=== PATIENT | female | born 1945 | race Caucasian/White ===

== ENCOUNTER 2017-06-04 15:54 | Inpatient (IN) | payer MEDICARE ==
--- NOTE | 2017-06-04 17:33 | RADIOLOGY REPORT (SQ) ---
EXAM DESCRIPTION: CHEST SINGLE VIEW COMPLETED DATE/TIME: 06/04/2017 5:16 pm REASON FOR STUDY: cough COMPARISON: None. EXAM PARAMETERS: NUMBER OF VIEWS: One view. TECHNIQUE: Single frontal radiographic view of the chest acquired. RADIATION DOSE: NA LIMITATIONS: None. FINDINGS: LUNGS AND PLEURA: There is a right pleural effusion and considerable opacification in the right lower hemithorax. MEDIASTINUM AND HILAR STRUCTURES: No masses. Contour normal. HEART AND VASCULAR STRUCTURES: Heart normal in size. Normal vasculature. BONES: No acute findings. HARDWARE: None in the chest. OTHER: No other significant finding. IMPRESSION: Right pleural effusion. Right lower lobe pneumonia versus atelectasis. TECHNICAL DOCUMENTATION: JOB ID: [id number] [email or web address]- All Rights Reserved
[2017-06-04] MEDS ORDERED: AZITHROMYCIN INJ 500 MG VIAL IV ONE (17:43)
[2017-06-04] MEDS ORDERED: CEFTRIAXONE 1 GM/D5W RTU 1 GM/50 ML RTUPB IV ONE (17:43)
[2017-06-04] MEDS ORDERED: NORMAL SALINE 500 ML IV ONE (17:45)
[2017-06-04 17:48] LABS: ABSOLUTE LYMPHOCYTES (AUTO) 0.8 10^3/uL (0.5-4.7); ABSOLUTE MONOCYTES (AUTO) 1.2 10^3/uL (0.1-1.4); ABSOLUTE NEUT (AUTO) 10.4 10^3/uL (1.7-8.2); BASOPHILS % (AUTO) 0.3 % (0-2); HEMATOCRIT 30.2 % (36.0-47.0); HEMOGLOBIN 9.9 g/dL (12.0-15.5); HGB HCT DIFFERENCE -0.5; LYMPHOCYTES % (AUTO) 6.8 % (13-45); MEAN CORPUSCULAR HEMOGLOBIN 28.4 pg (27.0-33.4); MEAN CORPUSCULAR HGB CONC 32.6 g/dL (32.0-36.0); MEAN CORPUSCULAR VOLUME 87 fl (80-97); MONOCYTES % (AUTO) 9.4 % (3-13); RED BLOOD COUNT 3.48 10^6/uL (3.72-5.28); RED CELL DISTRIBUTION WIDTH 17.4 % (11.5-14.0); SEGMENTED NEUTROPHILS % (AUTO) 83.5 % (42-78); WHITE BLOOD COUNT 12.5 10^3/uL (4.0-10.5)
[2017-06-04 17:52] LABS: ALANINE AMINOTRANSFERASE 21 U/L (9-52); ALBUMIN 2.9 g/dL (3.5-5.0); ALKALINE PHOSPHATASE 99 U/L (38-126); ANION GAP 11 (5-19); ASPARTATE AMINO TRANSFERASE 30 U/L (14-36); BILIRUBIN,DIRECT 0.5 mg/dL (0.0-0.4); BILIRUBIN,TOTAL 0.6 mg/dL (0.2-1.3); BLOOD UREA NITROGEN 17 mg/dL (7-20); CALCIUM 8.8 mg/dL (8.4-10.2); CARBON DIOXIDE 31 mmol/L (22-30); CHLORIDE 96 mmol/L (98-107); CREATININE RESULT 0.48 mg/dL (0.52-1.25); GLUCOSE 183 mg/dL (75-110); POTASSIUM 4.3 mmol/L (3.6-5.0); TOTAL PROTEIN 6.7 g/dL (6.3-8.2)
[2017-06-04 17:53] LABS: CREATINE KINASE < 20 U/L (30-135)
[2017-06-04 18:05] LABS: TROPONIN I < 0.012 ng/mL
--- NOTE | 2017-06-04 18:57 | ER Document Report ---
ED Respiratory Problem - General Chief Complaint: Cough Stated Complaint: NO APPETITE Time Seen by Provider: 06/04/17 17:39 Notes: She is a 71-year-old female who presents with increasing productive cough and decreased appetite over the past few days. She is also having mild shortness of breath. She does not wear oxygen at home. She denies chest pain, recent travel, fevers, nausea, vomiting, back pain, leg swelling, hemoptysis or sick contacts. TRAVEL OUTSIDE OF THE [place] IN LAST 30 DAYS: No - Related Data Allergies/Adverse Reactions: carbamazepine [From Tegretol] Allergy (Verified 06/04/17 15:56) morphine [Morphine] Allergy (Verified 06/04/17 15:56) Home Medications: Current Home Medications Atorvastatin Calcium [Lipitor 10 mg Tablet] 10 mg PO QHS 06/04/17 [History] Citalopram Hydrobromide [Citalopram HBr] 15 mg PO DAILY 06/04/17 [History] Metformin HCl [Metformin HCl ER] 500 mg PO DAILY 06/04/17 [History] Timolol Maleate [Timoptic 0.5% Oph Soln 5 ml] 1 drop BTH_EYE Q12 06/04/17 [ History] Past Medical History - General Information source: Patient - Social History Smoking Status: Former Smoker Chew tobacco use (# tins/day): No Frequency of alcohol use: None Drug Abuse: None Family History: Reviewed & Not Pertinent Patient has suicidal ideation: No Patient has homicidal ideation: No Endocrine Medical History: Reports: Hx Diabetes Mellitus Type 2 Renal/ Medical History: Denies: Hx Peritoneal Dialysis Past Surgical History: Reports: Hx Section, Hx Neurologic Surgery - facial nerve - Immunizations Hx Diphtheria, Pertussis, Tetanus Vaccination: Yes Review of Systems - Review of Systems Notes: REVIEW OF SYSTEMS: CONSTITUTIONAL: -fevers, -chills EENT: -eye pain, -difficulty swallowing, -nasal congestion CARDIOVASCULAR:-chest pain, -syncope. RESPIRATORY: +cough, +SOB GASTROINTESTINAL: -abdominal pain, -nausea, -vomiting, -diarrhea GENITOURINARY: -dysuria, -hematuria MUSCULOSKELETAL: -back pain, -neck pain SKIN: -rash or skin lesions. HEMATOLOGIC: -easy bruising or bleeding. LYMPHATIC: -swollen, enlarged glands. NEUROLOGICAL: -altered mental status or loss of consciousness, -headache, - neurologic symptoms PSYCHIATRIC: -anxiety, -depression. ALL OTHER SYSTEMS REVIEWED AND NEGATIVE. Physical Exam - Vital signs Vitals: Temp Pulse Resp BP Pulse Ox 98 F 70 28 H 104/52 L 91 L 06/04/17 15:59 06/04/17 15:59 06/04/17 15:59 06/04/17 15:59 06/04/17 15:59 - Notes Notes: PHYSICAL EXAMINATION: GENERAL: Mild respiratory distress. HEAD: Atraumatic, normocephalic. EYES: Pupils equal round and reactive to light, extraocular movements intact, sclera anicteric, conjunctiva are normal. ENT: nares patent, oropharynx clear without exudates. Moist mucous membranes. NECK: Normal range of motion, supple without lymphadenopathy LUNGS: Tachypnea. Crackles in RLL. HEART: Regular rate and rhythm without murmurs ABDOMEN: Soft, nontender, normoactive bowel sounds. No guarding, no rebound. No masses appreciated. EXTREMITIES: Normal range of motion, no pitting or edema. No cyanosis. NEUROLOGICAL: Cranial nerves grossly intact. Normal speech, normal gait. Normal sensory and motor exams. PSYCH: Normal mood, normal affect. SKIN: Warm, Dry, normal turgor, no rashes or lesions noted. Course - Re-evaluation Re-evalutation: Patient with right lower lobe pleural effusion and pneumonia. With the leukocytosis and productive cough, will begin antibiotics for CAP. She remains tachypneic at rest, which worsens during exertion. Rest of blood work is all unremarkable. She recently moved to [place] from [place] to live with her daughter and her primary care physician is Hudson Dukes. 06/04/17 21:[address] Zavala (Hospitalist) and she will admit patient as Inpatient to [facility] for further treatment and monitoring of her extensive pneumonia. CTA shows a possible cavitary lesion, but patient has no risk factors for tuberculosis and no recent travel or group home time. - Vital Signs Vital signs: Temp Pulse Resp BP Pulse Ox 97.8 F 64 36 H 129/55 H 93 06/04/17 20:07 06/04/17 20:00 06/04/17 21:13 06/04/17 21:13 06/04/17 21:13 - Laboratory Result Diagrams: 06/04/17 17:13 06/04/17 17:13 Laboratory results interpreted by me: 06/04/17 06/04/17 06/04/17 17:13 17:13 17:13 WBC 12.5 H RBC 3.48 L Hgb 9.9 L Hct 30.2 L RDW 17.4 H Plt Count 614 H Seg Neutrophils % 83.5 H Lymphocytes % 6.8 L Absolute Neutrophils 10.4 H VBG pH Chloride 96 L Carbon Dioxide 31 H Creatinine 0.48 L Glucose 183 H Direct Bilirubin 0.5 H Creatine Kinase < 20 L NT-Pro-B Natriuret Pep 2930 H Albumin 2.9 L 06/04/17 17:13 WBC RBC Hgb Hct RDW Plt Count Seg Neutrophils % Lymphocytes % Absolute Neutrophils VBG pH 7.47 H Chloride Carbon Dioxide Creatinine Glucose Direct Bilirubin Creatine Kinase NT-Pro-B Natriuret Pep Albumin - Diagnostic Test Radiology reviewed: Image reviewed, Reports reviewed Radiology results interpreted by me: CXR: Right pleural effusion. Right lower lobe pneumonia versus atelectasis. CTA Chest: Extensive pneumonia on the right with large right pleural effusion. Possible cavitary component. Peripheral opacity in the left lung. No pulmonary emboli. - EKG Interpretation by Me EKG shows normal: Sinus rhythm, [place], Intervals, QRS Complexes, ST-T Waves Rate: Normal When compared to previous EKG there are: No significant change Critical Care Note - Critical Care Note Total time excluding time spent on procedures (mins): 35 Discharge - Discharge Clinical Impression: Pleural effusion, right Pneumonia Qualifiers: Pneumonia type: due to unspecified organism Laterality: right Lung location: lower lobe of lung Qualified Code(s): J18.1 - Lobar pneumonia, unspecified organism Condition: Stable Disposition: ADMITTED INPATIENT Admitting Provider: Hospitalist [facility] Admitted: [facility]
[2017-06-04 19:01] LABS: VENOUS BLOOD BASE EXCESS 5.4 mmol/L; VENOUS BLOOD HCO3 29.5 mmol/L (20-32); VENOUS BLOOD PCO2 41.6 mmHg (35-63); VENOUS BLOOD PH 7.47 (7.30-7.42)
[2017-06-04] MEDS ORDERED: ONDANSETRON HCL INJ/PF 4 MG/2 ML SDV IV ONE (20:14)
[2017-06-04] MEDS ORDERED: FUROSEMIDE INJ/PF 20 MG/2 ML SDV IV ONE (21:15)
--- NOTE | 2017-06-04 21:16 | RADIOLOGY REPORT (SQ) ---
EXAM DESCRIPTION: CTA CHEST COMPLETED DATE/TIME: 06/04/2017 9:04 pm REASON FOR STUDY: SOB COMPARISON: None. TECHNIQUE: CT scan of the chest performed using helical scanning technique with dynamic intravenous contrast injection. Images reviewed with lung, soft tissue and bone windows. Reconstructed coronal and sagittal MPR images reviewed. Additional 3 dimensional post-processing performed to develop Maximal Intensity Projection images (GA P). All images stored on PACS. All CT scanners at this facility use dose modulation, iterative reconstruction, and/or weight based d osing when appropriate to reduce radiation dose to as low as reasonably achievable (ALARA). [facility]: Dose Right [facility]: CareDose [facility]: Dose Right [facility]: Teradose 4D [facility]: Selvz CONTRAST TYPE AND DOSE: contrast/concentration: Isovue 370.00 mg/ml; Total Contrast Delivered: 60.0 ml; Total Saline Delivered: 40.1 ml Contrast bolus adequate for pulmonary arteries and aorta. RENAL FUNCTION: GFR > 60. RADIATION DOSE: Up-to-date CT equipment and radiation dose reduction techniques were employed. CTDIv ol: 13.2 - 14.3 mGy. DLP: 496 mGy-cm. . LIMITATIONS: None. FINDINGS: LUNGS AND PLEURA: Large right pleural effusion with extensive opacity and volume loss in t he right lung. Possible early cavitation the right upper lobe. Peripheral pleural-based opacity in the left lung. Small left effusion. AORTA AND GREAT VESSELS: No aneurysm. Contrast bolus not optimized for the aorta. HEART: No pericardial effusion. No significant coronary artery calcifications. PULMONARY ARTERIES: No emboli visualized in the main pulmonary arteries or the segmental branches. HILAR AND MEDIASTINAL STRUCTURES: No identified masses or abnormal nodes. HARDWARE: None in the chest. UPPER ABDOMEN: No significant findings. Limited exam. THYROID AND OTHER SOFT TISSUES: No masses. No adenopathy. BONES: No acute or significant finding. 3D MIPS: Confirm above findings. OTHER: No other significant finding. IMPRESSION: Extensive pneumonia on the right with large right pleural effusion. Possible cavitary c omponent. Peripheral opacity in the left lung. No pulmonary emboli. COMMENT: Quality ID # [id number]: Final reports with documentation of one or more dose reduction techniques (e.g., Automated exposure control, adjustment of the mA and/or kV according to patient size, use of iterative reconstruction technique) TECHNICAL DOCUMENTATION: JOB ID: [id number] [employer]- All Rights Reserved
[2017-06-04] MEDS ORDERED: LEVALBUTEROL HCL NEB 1.25 MG/3 ML AMPUL NEB PRN (21:38)
[2017-06-04] MEDS ORDERED: ACETAMINOPHEN 325 MG TABLET PO PRN (21:38)
[2017-06-04] MEDS ORDERED: GUAIFENESIN SYRP 200 MG/10 ML UDC PO PRN (21:38)
[2017-06-04] MEDS ORDERED: DEXTROSE 50%-WATER 25 GM/50 ML DISP.SYRIN IV PRN ×2 (21:44)
[2017-06-04] MEDS ORDERED: DEXTROSE 40% GEL 15 GM TUBE PO PRN ×2 (21:44)
[2017-06-04] MEDS ORDERED: GLUCAGON,HUMAN RECOMB 1 MG INJ IM PRN (21:44)
[2017-06-04] MEDS ORDERED: GENTAMICIN SULFATE 0 MG in DEXTROSE 5%-WATER 100 ML IV NR (21:45)
[2017-06-04] MEDS ORDERED: NORMAL SALINE 1000 ML 1,000 ML IV PRN ×2 (21:49→23:26)
[2017-06-04] MEDS ORDERED: OXYCODONE HCL IR 5 MG TABLET PO PRN (21:50)
[2017-06-04] MEDS ORDERED: GENTAMICIN SULFATE INJ 80 MG/2 ML VIAL IV PRN (22:29)
[2017-06-04] MEDS ORDERED: GENTAMICIN SULFATE 100 MG in DEXTROSE 5%-WATER 100.0 ML IV ONE (22:30)
[2017-06-04 22:54] LABS: CREATINE KINASE MB < 0.22 ng/mL (<4.55); TROPONIN I < 0.012 ng/mL
[2017-06-04] MEDS ORDERED: LEVOFLOXACIN 750 MG/D5W RTU 750 MG/150 ML RTUPB IV ONE (23:00)
[2017-06-04] MEDS ORDERED: NORMAL SALINE 1000 ML 500 ML IV ONE (23:20)
[2017-06-04] MEDS: CEFEPIME 2 GM/D5W RTU 2 GM/50 ML RTUPB IV SCH (23:30)
--- NOTE | 2017-06-04 23:47 | PDOC H&P ---
History of Present Illness Admission Date/PCP: 06/04/17 20:56 MARINE WAGONER MD History of Present Illness: JESSICA OLIVER is a 71 year old female with past medical history of trigeminal neuralgia chronic, chronic opiate dependence, diabetes mellitus type 2, COPD, and glaucoma who presents to the emergency department with a cough of several weeks duration. Patient reports that she was diagnosed with pneumonia approximately 1 month ago and received an antibiotic which she cannot recall the name of and completed. She did request states that she did not feel any better after having this antibiotic. She reports that her shortness of breath has gotten worse. She does admit to chest pain on both her left and right side. She reports that this is a sharp stabbing pain that is worse with deep inspiration. She also reports orthopnea, dyspnea on exertion, and bilateral lower extremity edema. She reports that she is currently being worked up for congestive heart failure and has been placed on a water pill. She takes states that she takes this every other day. She reports that she has not eaten for the last 2 days. She does report she has had some loose stool over the last several days. Patient is referred to the hospitalist service for sepsis, pneumonia. Please note that patient's medications are listed but do not include her oxycodone 15 mg p.o. every 6H prn Past Medical History Pulmonary Medical History: Reports: Chronic Obstructive Pulmonary Disease (COPD) , Pneumonia EENT Medical History: Reports: Other - Glaucoma Neurological Medical History: Reports: Other - Trigeminal neuralgia Endocrine Medical History: Reports: Diabetes Mellitus Type 2 Psychiatric Medical History: Denies: Depression Past Surgical History Past Surgical History: Reports: Section, Other - Trigeminal neuralgia surgery Social History Smoking Status: Former Smoker Cigarettes Packs Per Day: 0.5 Number of Years Smokin Last Time Smoked: April 21, 2017 Hx Recreational Drug Use: No Hx Prescription Drug Abuse: No - Advance Directive Resuscitation Status: Full Code Surrogate healthcare decision maker:: Mariama Fabianbimal, daughter Family History Family History: COPD, CVA Parental Family History Reviewed: Yes Children Family History Reviewed: Yes Sibling(s) Family History Reviewed.: Yes Medication/Allergy Home Medications: Atorvastatin Calcium [Lipitor 10 mg Tablet] 10 mg PO QHS 06/04/17 Citalopram Hydrobromide [Citalopram HBr] 15 mg PO DAILY 06/04/17 Metformin HCl [Metformin HCl ER] 500 mg PO DAILY 06/04/17 Timolol Maleate [Timoptic 0.5% Oph Soln 5 ml] 1 drop BTH_EYE Q12 06/04/17 Allergies/Adverse Reactions: carbamazepine [From Tegretol] Allergy (Verified 06/04/17 15:56) morphine [Morphine] Allergy (Verified 06/04/17 15:56) Review of Systems Constitutional: PRESENT: weakness. ABSENT: chills, fever(s), headache(s), weight gain, weight loss Eyes: ABSENT: visual disturbances Ears: ABSENT: hearing changes Nose, Mouth, and Throat: PRESENT: headache(s) - Chronic due to trigeminal neuralgia Cardiovascular: PRESENT: chest pain, dyspnea on exertion, edema, orthropnea. ABSENT: palpitations Respiratory: PRESENT: cough, dyspnea, sputum. ABSENT: hemoptysis Gastrointestinal: PRESENT: constipation, diarrhea, nausea. ABSENT: abdominal pain, hematemesis, hematochezia, melena, vomiting Genitourinary: ABSENT: difficulty urinating, dysuria, hematuria Musculoskeletal: ABSENT: joint swelling Integumentary: ABSENT: rash, wounds Neurological: ABSENT: abnormal gait, abnormal speech, confusion, dizziness, focal weakness, syncope Psychiatric: ABSENT: anxiety, depression, homidical ideation, suicidal ideation Endocrine: ABSENT: cold intolerance, heat intolerance, polydipsia, polyuria Hematologic/Lymphatic: ABSENT: easy bleeding, easy bruising Physical Exam Vital Signs: Temp Pulse Resp BP Pulse Ox 97.6 F 60 20 92/49 L 94 06/04/17 22:33 06/04/17 22:33 06/04/17 22:33 06/04/17 22:33 06/04/17 22:33 Intake & Output 06/03/17 06/04/17 06/05/17 06:59 06:59 06:59 Weight 47 kg General appearance: PRESENT: mild distress - Acutely ill-appearing, well- developed, well-nourished Head exam: PRESENT: atraumatic, normocephalic Eye exam: PRESENT: conjunctiva pink, EOMI, PERRLA. ABSENT: conjunctival injection, scleral icterus Ear exam: PRESENT: normal external ear exam Mouth exam: PRESENT: dry mucosa, tongue midline Neck exam: ABSENT: JVD, lymphadenopathy, thyromegaly, tracheal deviation Respiratory exam: PRESENT: crackles, decreased breath sounds - Right lower lobe , egophony, prolonged expiratory phas, rhonchi - Bilateral, symmetrical, tachypnea, other - General poor air excursion. ABSENT: accessory muscle use, rales, unlabored, wheezes Cardiovascular exam: PRESENT: RRR, +S1, +S2. ABSENT: diastolic murmur, rubs, systolic murmur Pulses: PRESENT: normal dorsalis pedis pul Vascular exam: PRESENT: normal capillary refill GI/Abdominal exam: PRESENT: hypoactive bowel sounds, normal bowel sounds, soft. ABSENT: distended, guarding, mass, Clayton's sign, organolmegaly, rebound, rigid, tenderness Rectal exam: PRESENT: deferred Extremities exam: PRESENT: clubbing, full ROM, +2 edema - To mid briggs. ABSENT: calf tenderness Neurological exam: PRESENT: alert, awake, oriented to person, oriented to place , oriented to time, oriented to situation, CN II-XII grossly intact. ABSENT: motor sensory deficit Psychiatric exam: PRESENT: anxious, appropriate affect. ABSENT: homicidal ideation, suicidal ideation Skin exam: PRESENT: dry, intact, warm. ABSENT: cyanosis, rash Results Laboratory Results: 06/04/17 21:45 TSH 0.81 06/04/17 06/04/17 21:45 21:45 Creatine Kinase < 20 L CK-MB (CK-2) < 0.22 Troponin I < 0.012 06/04/17 06/04/17 06/04/17 17:13 17:13 17:13 WBC 12.5 H Hgb 9.9 L Plt Count 614 H VBG pH Sodium 138.0 Potassium 4.3 Chloride 96 L Carbon Dioxide 31 H Anion Gap 11 BUN 17 Creatinine 0.48 L Glucose 183 H Lactic Acid AST 30 ALT 21 Alkaline Phosphatase 99 Creatine Kinase < 20 L Troponin I < 0.012 NT-Pro-B Natriuret Pep 2930 H Total Protein 6.7 Albumin 2.9 L 06/04/17 06/04/17 17:13 17:13 WBC Hgb Plt Count VBG pH 7.47 H Sodium Potassium Chloride Carbon Dioxide Anion Gap BUN Creatinine Glucose Lactic Acid 1.2 AST ALT Alkaline Phosphatase Creatine Kinase Troponin I NT-Pro-B Natriuret Pep Total Protein Albumin Impressions: Chest/Abdomen CTA 06/04/17 00:00 IMPRESSION: Extensive pneumonia on the right with large right pleural effusion. Possible cavitary component. Peripheral opacity in the left lung. No pulmonary emboli. Chest X-Ray 06/04/17 16:50 IMPRESSION: Right pleural effusion. Right lower lobe pneumonia versus atelectasis. Status: Imported from PACS Assessment & Plan - Diagnosis (1) Pneumonia Qualifiers: Pneumonia type: due to unspecified organism Laterality: right Lung location: lower lobe of lung Qualified Code(s): J18.1 - Lobar pneumonia, unspecified organism Is this a current diagnosis for this admission?: Yes Plan: Patient reports that she failed outpatient therapy having an unknown antibiotic approximately 1 month ago. In light of patient's COPD and chronic opiate dependence, have concerned for possible aspiration as there is a possible cavitary lesion on her CT. Patient has not traveled to endemic parts of the of the world for tuberculosis or has been incarcerated, but will obtain a QuantiFERON gold. Place patient on cefepime, gentamicin, and Levaquin. Will also place patient on Solu-Medrol. Consider vancomycin if MRSA becomes suspect. (2) Acute hypoxemic respiratory failure Is this a current diagnosis for this admission?: Yes Plan: Oxygen therapy to maintain saturation between 90 and 94 (3) Pleural effusion, right Is this a current diagnosis for this admission?: Yes Plan: Have concerned that this is a multifactorial effusion given patient's presentation sounds quite a bit like congestive heart failure. Obtain an echo, and a thoracocentesis. There is concern for a malignant effusion as well as a empyema. This will be very revealing for this. Hold on any Lasix at this time due to patient's relative hypotension. (4) COPD exacerbation Is this a current diagnosis for this admission?: Yes Plan: Place patient on scheduled nebulized treatments as well as Solu-Medrol (5) Trigeminal neuralgia Is this a current diagnosis for this admission?: Yes Plan: Continue oxycodone if blood pressure and breathing permits. Patient reports her allergy to Tegretol is a rash and to oral morphine is a stomach problem undefined. (6) Chronic prescription opiate use Is this a current diagnosis for this admission?: Yes Plan: Continue oxycodone (7) Malnutrition Qualifiers: Malnutrition type: protein-calorie malnutrition Protein-calorie malnutrition severity: moderate Qualified Code(s): E44.0 - Moderate protein- calorie malnutrition Is this a current diagnosis for this admission?: Yes Plan: Place patient on Glucerna 3 times daily. (8) Failure of outpatient therapy Is this a current diagnosis for this admission?: Yes (9) DM type 2 (diabetes mellitus, type 2) Qualifiers: Diabetes mellitus complication status: with unspecified complications Diabetes mellitus fpc insulin use: without manager intermediate use Qualified Code( s): E11.8 - Type 2 diabetes mellitus with unspecified complications Is this a current diagnosis for this admission?: Yes Plan: Will hold patient's metformin and place on sliding scale insulin. Check A1c. (10) Anemia Qualifiers: Anemia type: unspecified type Qualified Code(s): D64.9 - Anemia, unspecified Is this a current diagnosis for this admission?: Yes Plan: We will guaiac patient's stool. Obtain anemia studies. - Time Time Spent: 50 to 70 Minutes Medications reviewed and adjusted accordingly: Yes Anticipated discharge: Home - Inpatient Certification Based on my medical assessment, after consideration of the patient's comorbidities, presenting symptoms, or acuity I expect that the services needed warrant INPATIENT care.: Yes I certify that my determination is in accordance with my understanding of Medicare's requirements for reasonable and necessary INPATIENT services [42 CFR 412.3e].: Yes Medical Necessity: Failure to Improve With Outpatient Therapy, Need For IV Fluids, Need For Continuous Telemetry Monitoring, Need for Nebulizer Therapy and Monitoring of Response, Need for IV Antibiotics Post Hospital Care: D/C Information Resource Consultant Documentation
[2017-06-04] MEDS: METHYLPREDNISOLONE INJ 40 MG/1 ML SDV IV SCH (23:48)
[2017-06-04] MEDS: ATORVASTATIN CALCIUM 10 MG TABLET PO SCH (23:49)
[2017-06-04] MEDS: SENNOSIDES/DOCUSATE 8.6-50 MG 1 EACH TABLET PO SCH (23:49)
[2017-06-04] MEDS: GUAIFENESIN 600 MG TABLET.SA PO SCH (23:50)
[2017-06-04] MEDS: TIMOLOL MALEATE 0.5% OPH SOLN 5 ML OU SCH (23:51)
[2017-06-05 00:04] LABS: PROTHROMBIN TIME 16.2 SEC (11.4-15.4)
[2017-06-05 00:05] LABS: PARTIAL THROMBOPLASTIN TIME 43.6 SEC (23.5-35.8)
[2017-06-05] MEDS ORDERED: NORMAL SALINE IV ONE ×2 (00:30→01:15)
[2017-06-05] MEDS ORDERED: GENTAMICIN SULFATE IV ONE ×2 (00:30→01:15)
[2017-06-05] MEDS: IPRATROPIUM/ALBUTEROL 0.5-2.5 MG/3 ML AMPUL NEB SCH ×4 (01:57→19:54)
[2017-06-05 04:16] LABS: HEMATOCRIT 27.7 % (36.0-47.0); HGB HCT DIFFERENCE -0.7; MEAN CORPUSCULAR HGB CONC 32.3 g/dL (32.0-36.0); MEAN CORPUSCULAR VOLUME 87 fl (80-97); RED CELL DISTRIBUTION WIDTH 17.1 % (11.5-14.0); WHITE BLOOD COUNT 9.5 10^3/uL (4.0-10.5)
[2017-06-05 04:20] LABS: ANION GAP 12 (5-19); BLOOD UREA NITROGEN 14 mg/dL (7-20); CALCIUM 8.3 mg/dL (8.4-10.2); CARBON DIOXIDE 25 mmol/L (22-30); CHLORIDE 101 mmol/L (98-107); CREATININE RESULT 0.42 mg/dL (0.52-1.25); GLUCOSE 247 mg/dL (75-110); POTASSIUM 3.9 mmol/L (3.6-5.0); SODIUM 138.2 mmol/L (137-145)
[2017-06-05 04:35] LABS: CREATINE KINASE MB < 0.22 ng/mL (<4.55); TROPONIN I < 0.012 ng/mL
[2017-06-05 04:53] LABS: BASOPHILS % (MANUAL) 0 % (0-2); EOSINOPHILS % (MANUAL) 0 % (0-6); LYMPHOCYTES % (MANUAL) 6 % (13-45); TOTAL CELLS COUNTED 100
[2017-06-05 04:54] LABS: ANISOCYTOSIS 1+; TOXIC GRANULATION SLIGHT
[2017-06-05 05:06] LABS: STAIN REACTIVITY CHECK ACCEPTABLE
[2017-06-05] MEDS: METHYLPREDNISOLONE INJ 40 MG/1 ML SDV IV SCH (05:06)
[2017-06-05 05:44] LABS: FOLATE > 20.00 ng/mL (>2.76)
[2017-06-05] MEDS: DOCUSATE SODIUM 100 MG CAPSULE PO SCH ×2 (08:44→17:01)
[2017-06-05] MEDS: GUAIFENESIN 600 MG TABLET.SA PO SCH ×2 (08:45→21:28)
[2017-06-05] MEDS: CEFEPIME 2 GM/D5W RTU 2 GM/50 ML RTUPB IV SCH ×2 (08:46→21:25)
--- NOTE | 2017-06-05 09:28 | EKG REPORT ---
SEVERITY:- ABNORMAL ECG - SINUS RHYTHM PROBABLE LEFT ATRIAL ABNORMALITY LEFT ANTERIOR FASCICULAR BLOCK LOW VOLTAGE IN FRONTAL LEADS NONSPECIFIC T ABNORMALITIES, INFERIOR LEADS BORDERLINE PROLONGED QT INTERVAL : Confirmed by: Matilda Armenta 05-Jun-2017 09:27:50
[2017-06-05] MEDS ORDERED: ENOXAPARIN SODIUM INJ 30 MG/0.3 ML DISP.SYRIN SUBCUT SCH (10:00)
[2017-06-05] MEDS: TIMOLOL MALEATE 0.5% OPH SOLN 5 ML OU SCH ×2 (10:52→21:27)
[2017-06-05] MEDS: INSULIN LISPRO 100 UNIT/ML 3 ML VIAL SUBCUT PRN ×3 (12:33→21:25)
--- NOTE | 2017-06-05 12:57 | TRANSFER SUMMARY E ---
Transfer Summary NAME: JESSICA OLIVER : 1945 AGE: 71Y ADMITTED: 06/04/2017 TRANSFERRED: 06/05/2017 RECEIVING FACILITY: [facility] CODE STATUS: DO NOT RESUSCITATE/DO NOT INTUBATE. PRIMARY CARE PROVIDER: Hudson Dukes TRANSFER DIAGNOSES: Includes: 1. Loculated effusion versus empyema of the right lung. 2. Extensive right lung pneumonia. 3. Diabetes mellitus type 2, which is well controlled. 4. Pwy-pleecs-rsuqmrayi COPD. 5. Tobacco dependency. The patient stopped smoking 04/21/2017. 6. Diabetes mellitus type 2, soy-srgoebb-laquohanx. 7. Acute hypoxic respiratory failure secondary to #1. CURRENT MEDICATIONS: Include: 1. Cefepime 2 g IV q. 12 hours. 2. Levaquin 750 mg IV q. hour of sleep. 3. Duonebs q. 6 hours p.r.n. 4. Xopenex 1.25 mg nebs q. 2 hours p.r.n. 5. Lipitor 10 mg p.o. q. hour of sleep. 6. Haldol 650 mg p.o. q. 4 hours p.r.n. 7. OxyIR 10 mg p.o. q. 6 hours p.r.n. 8. Normal saline 83.3 mL an hour. 9. Gentamicin IV 90 mg q. a.m. 10. Timoptic 0.5 drops in both eyes q. 12. 11. Colace 100 mg p.o. b.i.d. 12. Solu-Medrol 80 mg IV q. 8 hours. 13. Mucinex 600 mg p.o. q. 12 hours. DIET: Currently cardiac. Patient will be made n.p.o. for transport. ACTIVITY: Bedrest. DIAGNOSTICS: Lab values are as follows: Hematology obtained on 06/05/2017: WBCs are 9.5, hemoglobin is 9.0, hematocrit is 27.7, platelet count is 526,000. Coagulation obtained on 06/04/2017: PT is 16.2, INR is 1.22. Venous blood gases obtained on 06/04/2017: PH is 7.47, PCO2 is 41.6, bicarb is 29.5. Chemistry obtained on 05/26/2017: Sodium is 138, potassium 3.9, chloride is 101, carbon dioxide 25, BUN 14, creatinine is 0.42, glucose is 247. A1C is 6.8. Lactic acid is 1.2. Calcium is 8.3, iron is 10.1, TIBC is 172. Transferrin is pending. Ferritin is 342. BNP is 1730, B12 is 894. Folate is greater than 20. Bilirubin is 0.6. AST 30, ALT is 21, Alk phos 99, CK 20, CK-MB is 0.22. Troponin is 0.012. Serologies obtained on 06/05/2017: TB Quantiferon is pending. Microbiology: Blood cultures obtained on 06/04/2017 is pending. CTA of the chest and abdomen obtained on 06/04/2017 reveals extensive pneumonia on the right with a large right pleural effusion, possible cavitary component, peripheral opacity in the left lung, but no pulmonary emboli. EKG obtained on 06/04/2017 reveals sinus rhythm with left atrial abnormality. HISTORY OF PRESENT ILLNESS: The patient is a 71-year-old female with a past medical history of diet-controlled diabetes as well as recent trigeminal neuralgia and uqy-zfmzug-otksuniju COPD. The patient presented to the emergency department with a chief complaint of shortness of breath, cough, and sputum production. The patient stated that she was diagnosed with pneumonia outpatient about a month ago and had been receiving an antibiotic, which she felt was Levaquin, without any improvement of symptoms. The patient stated that her shortness of breath had progressed to the point that she was unable to fully complete sentences. The patient admitted to chest pain on both the right and left side of her chest, very sharp, stabbing pain with deep inspiration. The patient reported orthopnea, dyspnea on exertion, and a presence of bilateral lower extremity edema, which was new for her. However, the patient has had about 40 pound weight loss in spite of this. The patient was noted to have a white count of 12.5, a hemoglobin of 9.9, platelets of 614,000. The patient's chemistries were pretty unremarkable, and the patient did have a BNP of 2900. The patient was treated in the emergency department with nebs as well as gentamicin and Levaquin, and the patient was referred to the hospitalist for admission and management. The patient also received a dose of Lasix. HOSPITAL COURSE: The patient was admitted to [facility]. The patient was on scheduled and p.r.n. breathing treatments and the patient eventually was able to transition to a nasal cannula. The patient was currently oxygenating about 95% on 2 L and appears comfortable. The patient's tachypnea overall has improved. The patient is now able to complete sentences on examination. The patient was scheduled for a thoracentesis by Interventional Radiology who called and discussed the case with myself and felt that the patient would not benefit from procedure here and recommended a VATS procedure. Given that it appeared to be a loculated impending empyema, called and discussed the case with Dr. Bazan with Thoracic Surgery who graciously agreed to see the patient on consult, then contacted the Medicine Service, Dr. Tavares, who has graciously agreed to accept the patient in transfer, and did discuss this plan with the patient. PHYSICAL EXAMINATION: GENERAL: On examination, the patient is a frail, chronically ill-appearing 71-year-old female who is awake, alert. She is oriented to person, place, time, and situation. She is verbal, conversational, does not appear to be distressed at the moment. VITAL SIGNS: Temperature is 97.8, pulse 61, respirations 22, blood pressure 115/58, oxygen saturation 100% on 2 L nasal cannula. SKIN: Warm and dry. No rash. Not diaphoretic. HEENT: Pupils equal, round, and reactive to light and accommodation. Conjunctivae pink. No JVP. CARDIOVASCULAR SYSTEM: Heart is regular. There is no murmur or rub. CHEST: Diminished. The patient does have rhonchorous breath sounds all throughout the right lung field. ABDOMEN: Soft, nontender, nondistended. BACK: No CVA tenderness or sacral edema. EXTREMITIES: The patient does have 1+ bilateral lower extremity pitting edema, which is relatively new for the patient within the past month. PSYCHIATRIC: Appropriate affect, pleasant mood. DISCHARGE PLANNING: The patient will be received to the services of Dr. Tavares, the hospitalist at [facility] with Thoracic Surgery consultation. Time spent on this transfer including assessment, plan, physical examination, patient education, review of previous current medical records, and resource alignment is 90 minutes. DICTATING PHYSICIAN: SKYE SULLIVAN NP [id number] PHY#: [id number] ID: [id number] JOB#: [id number] ACCT: [id number] cc:SKYE SULLIVAN NP > JUAN
[2017-06-05] MEDS: DIVALPROEX SODIUM 250 MG TABLET.DR PO SCH ×2 (13:55→21:28)
[2017-06-05] MEDS: OXYCODONE HCL IR 5 MG TABLET PO PRN ×2 (13:55→18:04)
[2017-06-05] MEDS: METHYLPREDNISOLONE INJ 125 MG/2 ML SDV IV SCH ×2 (13:59→21:26)
[2017-06-05] MEDS: ATORVASTATIN CALCIUM 10 MG TABLET PO SCH (21:28)
[2017-06-05] MEDS: SENNOSIDES/DOCUSATE 8.6-50 MG 1 EACH TABLET PO SCH (21:28)
[2017-06-05] MEDS ORDERED: LEVOFLOXACIN 750 MG/D5W RTU 750 MG/150 ML RTUPB IV SCH (22:00)
[2017-06-05 23:41] VITALS: BP 100/60
[2017-06-06] MEDS ORDERED: GENTAMICIN SULFATE 90 MG in DEXTROSE 5%-WATER 100 ML IV SCH (06:00)
--- NOTE | 2017-06-06 09:12 | Physician Advisory Note ---
Physician Advisor ProgressNote .: Pursuant to the plan for [facility], I have reviewed the medical record for this patient. Physician Advisor Statement: Please consider documenting, if you agree: 1. "ACute Hypoxemic Respiratory FAilure, evidenced by O2 sat only 95% on 2L O2 , tachypnea, resp distress, and unable to speak in complete sentences due to SOB " 2. "underweight with protein-calorie malnutrition [state mild, mod, or severe ] with BMI 17.8, ..." [if possible, give specifics on intake, wt loss, loss of SQ fat & muscle mass, diminished hand surgical dental assistant strength, & clinical importance such as (A) nutritional assessment ordered, (B) modified diet or supplements ordered, (C) additional labs ordered, (D) prolonged wound healing time, (E) delayed infxn clearance] CK
[2017-06-07 21:07] LABS: QUANTIFERON TB ANTIGEN VALUE 0.09 IU/mL (.); QUANTIFERON TB NIL VALUE 0.06 IU/mL (.)
== END 2017-06-05 23:20 | disposition short-term general hospital (02) | DRG 189 ==
LOC: ER 15:54 → EH 20:56 → 3W 22:09
PROVIDERS: ADMIT Family Medicine; ATTEND Family Medicine
DX: J96.01 Acute respiratory failure with hypoxia (principal); J86.9 Pyothorax without fistula; J18.1 Lobar pneumonia, unspecified organism; J44.0 Chronic obstructive pulmonary disease with (acute) lower respiratory infection; J44.1 Chronic obstructive pulmonary disease with (acute) exacerbation; E44.0 Moderate protein-calorie malnutrition; J90 Pleural effusion, not elsewhere classified; Z68.1 Body mass index [BMI] 19.9 or less, adult; F11.20 Opioid dependence, uncomplicated; G50.0 Trigeminal neuralgia; E11.9 Type 2 diabetes mellitus without complications; D64.9 Anemia, unspecified; H40.9 Unspecified glaucoma; Z79.84 Long term (current) use of oral hypoglycemic drugs; Z79.899 Other long term (current) drug therapy; Z87.891 Personal history of nicotine dependence; Z88.8 Allergy status to other drugs, medicaments and biological substances
CPT/HCPCS: 36415; 71010; 71275; 80048; 80053; 82550; 82553; 82607; 82728; 82746; 82803; 82962; 83036; 83540; 83550; 83605; 83880; 84443; 84466; 84484; 85025; 85045; 85610; 85730; 86480; 87040; 93005; 93010; 94640; 94799; 96361; 96365; 96367; 96375; 99291; J0456; J0692; J0696; J1580; J1815; J1956; J2405; J2920; J2930; J3490; J7030; J7040; J7620

== ENCOUNTER → 2017-07-11 | Outpatient (CLI) | payer MEDICARE ==
[~2017-07-11] MED LIST: ALBUTEROL SULFATE 0.083% NEB 2.5 MG/3 ML AMPUL NEB ONE
--- NOTE | 2017-07-12 11:07 | Pulmonary Function Test ---
Pulmonary Function Test Date of Procedure:: 07/12/17 INDICATION:: Dyspnea Referring Provider: Dr. Reji Ruiz Carbonation Equipment Tender: Martha Muller SUPERVISOR SHUTTLE PREPARATION, DAM TENDER ASSISTANT - Report Spirometry: FVC 2.62 L 93% postbronchodilator therapy 2.71 L 96% FEV1 1.75 L 81% postbronchodilator therapy 1.78 L 82% FEV1/FVC % 67 postbronchodilator therapy 65 predicted 82 FEF 25-75% 1.06 L 53% postbronchodilator therapy 1.15 L 58% Lung Volume: Total lung capacity 4.37 L 91% Vital capacity 2.87 L 93% IC 1.19 FRC N2 3.18 103% ERV 0.82 RV 1.75 90% RV/TLC % 40 predicted 41 Diffusion Capactity: DLCO 10.8 70% DLCO/VA 3.20 88% Impression: This study demonstrates moderate obstructive ventilatory defect with insignificant response to bronchodilator therapy. This does not preclude a clinical trial of bronchodilator therapy. There is no evidence for restrictive ventilatory defect hyperinflation or air trapping. There is a mild decrease in diffusion capacity.
== END ==
LOC: RT 09:54
PROVIDERS: ATTEND Thoracic Surgery (Cardiothoracic Vascular Surgery)
DX: R06.02 Shortness of breath (principal); Z72.0 Tobacco use
CPT/HCPCS: 94729; 94727; 94060; A9270

== ENCOUNTER → 2017-07-23 | Outpatient (CLI) | payer MEDICARE ==
--- NOTE | 2017-07-24 10:13 | RADIOLOGY REPORT (SQ) ---
EXAM DESCRIPTION: PET CT LIMITED COMPLETED DATE/TIME: 07/23/2017 7:50 pm REASON FOR STUDY: ABNORMAL FINDINGS OF LUNG FIELD R91.8 OTHER NONSPECIFIC ABNORMAL FINDING OF LUNG FIELD COMPARISON: CT chest 06/04/2017 RADIONUCLIDE AND DOSE: 10.4 mCi F18 FDG The route of agent administration: Intravenous FASTING BLOOD SUGAR: 99 mg/dl CONTRAST TYPE AND DOSE: No CT contrast given. TECHNIQUE: Blood glucose level was verified. Above dose of FDG was injected intravenously. 2-D seg mented attenuation correction images were obtained from the base of the skull to the midthighs. Nonc ontrast CT images were obtained for attenuation correction and fusion with emission images. CT image s were performed without oral or intravenous contrast and are not sensitive for parenchymal lesions. A series of overlapping emission PET images were obtained. Images reviewed and manipulated at [facility] work station by the radiologist. Images stored on PACS. LIMITATIONS: None. FINDINGS: HEAD AND NECK: No areas of abnormal metabolic activity in the soft tissues of the head and neck. CHEST: Prior CT chest was reviewed. Since the prior exam on 06/04/2017, the bilateral pleural effusi ons and mediastinal adenopathy have resolved. On today's study, a 1.3 x 1 cm precarinal lymph node i s present with SUV 1.2 on axial image 78 (was 1.7 x 1.[address] 06/04/2017). In the right middle lobe, cavitary infiltrate seen 06/04/2017 has significantly improved. There is p ersistent right middle lobe volume loss with air bronchograms on axial image 94-104, with patchy meta bolic activity ranging up to 2.5 SUV. In the right lower lobe, along the lateral inferior edge of the major fissure there is a focal area o f consolidation above the mm in greatest diameter on axial image 94. This has SUV of 2.5. Overall, the amount of consolidation in this area has significantly improved compared to 06/04/2017. In the lingula, a 1.5 cm soft tissue density is present along the anterior inferior edge of the major fissure, non metabolic. This is smaller than on 06/04/2017 where it measured about 3.5 by 3 cm in s ize. ABDOMEN AND PELVIS: No areas of abnormal metabolic activity in the abdomen or pelvis. Expected physi ologic activity is present in the genitourinary system and bowel. PROXIMAL LOWER EXTREMITIES: No areas of abnormal metabolic activity in the soft tissues of the lower extremities. BONES: No abnormal metabolic activity in the visualized skeleton. ADDITIONAL CT FINDINGS: Old right occipital craniotomy. Non metabolic 2 cm left adrenal nodule axial image 123 OTHER: Liver background SUV 1.8. Blood pool background activity 1.3 SUV IMPRESSION: Significant improvement in appearance of the chest compared to 06/04/2017. There is sti ll some volume loss and consolidation right middle lobe and right lower lobe with minimal metabolic a ctivity 2.5 SUV. TECHNICAL DOCUMENTATION: JOB ID: [id number] [employer]- All Rights Reserved
== END ==
LOC: RAD 15:55
PROVIDERS: ATTEND Surgery
DX: R91.8 Other nonspecific abnormal finding of lung field (principal)
CPT/HCPCS: 78814; A9552

== ENCOUNTER → 2017-11-07 | Outpatient (CLI) | payer MEDICARE ==
--- NOTE | 2017-11-07 09:59 | WOMENS IMAGING REPORT ---
EXAM DESCRIPTION: 3D SCREENING MAMMO BILAT COMPLETED DATE/TIME: 11/07/2017 8:48 am REASON FOR STUDY: SCREENING MAMMO Z12.31 ENCNTR SCREEN MAMMOGRAM FOR MALIGNANT NEOPLASM OF [place] COMPARISON: None available. TECHNIQUE: Standard craniocaudal and mediolateral oblique views of each breast recorded using digita l acquisition and breast tomosynthesis. LIMITATIONS: None. FINDINGS: No masses, calcifications or architectural distortion. No areas of suspicion. Read with the assistance of CAD. .[facility] - R2 [employer] Version 1.3 .[facility] Imaging - R2 Cenova Version 1.3 .[facility] - R2 Cenova Version 2.4 .[facility] - R2 Cenova Version 2.4 .[facility] - R2 [employer] Supervisor Version 9.2 IMPRESSION: NORMAL MAMMOGRAM. BIRADS 1. BREAST DENSITY: b. There are scattered areas of fibroglandular density. BIRAD: 1 NEGATIVE RECOMMENDATION: ROUTINE SCREENING COMMENT: The patient has been notified of the results by letter per SA requirements. Additional no tification policies are in place for contacting patient with suspicious or incomplete findings. Quality ID #[id number]: The [employer] recommends an annual screening mammogram for women aged 40 years or over. This facility utilizes a reminder system to ensure that all patients receive reminder letters, and/or direct phone calls for appointments. This includes reminders for routine scr eening mammograms, diagnostic mammograms, or other Breast Imaging Interventions when appropriate. Th is patient will be placed in the appropriate reminder system. The [employer] (ACR) has developed recommendations for screening MRI of the breast s in certain patient populations, to be used in conjunction with mammography. Breast MRI surveillanc e may be appropriate for women with more than 20% lifetime risk of developing breast cancer as deter mined by genetic testing, significant family history of the disease, or history of mantle radiation f or Hodgkins Disease. ACR Practice Guidelines 2008. DBT Technology DBT is a type of tomographic mammography. With conventional mammography, overlapping breast tissue ma y make lesions difficult to detect, even with good compression. DBT uses an x-ray tube that rotates a round the breast, taking images at different angles. These images are then combined to create thin sl ices of the breast that the radiologist can view as a 3D reconstruction. The [employer] unit can perform full-field digital mammograms (2D imaging); or DBT (3D imaging); or both, in a combination mode that quickly performs both the mammogram and the tomosynthesis scan while the breast is still compressed. PQRS 6045F: Fluoroscopic imaging is not utilized for breast tomosynthesis. TECHNICAL DOCUMENTATION: FINDING NUMBER: (1) ASSESSMENT: (1) JOB ID: [id number] [employer]- All Rights Reserved Reading location - IP/workstation name: [facility]
== END ==
LOC: WI 08:03
PROVIDERS: ATTEND Family Medicine
DX: Z12.31 Encounter for screening mammogram for malignant neoplasm of breast (principal)
CPT/HCPCS: 77063; 77067